=== PATIENT | male | born 1975 ===

== ENCOUNTER → 2018-09-15 | Outpatient (CLI) | payer BC | LOC: BMCIMAGING 15:52 | PROVIDERS: ATTEND Family Medicine | DX: M75.101 Unspecified rotator cuff tear or rupture of right shoulder, not specified as traumatic (principal) ==

== ENCOUNTER → 2018-12-27 | Outpatient (CLI) | payer BC | LOC: BMCIMAGING 17:43 | PROVIDERS: ATTEND Emergency Medicine | DX: S59.901A Unspecified injury of right elbow, initial encounter (principal) ==